=== PATIENT | female | born 1970 | race Caucasian/White ===

== ENCOUNTER 2018-07-15 17:10 | Emergency (ER) | payer OTHER ==
[~2018-07-15] VITALS: Ht 167.6 cm; Wt 82.0 kg
[~2018-07-15 17:10] MED LIST: ALPR-624 PO; ASPI-1265 PO; ATOR20TA PO; BUPR-94 PO; CHOL200074 PO; DICY10CA59 PO; DULO60CA45 PO; ESTR1PAT TD; EXEN2VIA SUBCUT; HYDR-4353 PO; INSU100V12 SQ; INSU100V13 SQ; METF1000 PO; PANT-47 PO; PROG100C16 PO; ZOLP5TAB8 PO
[2018-07-15 18:05] LABS: CLARITY,URINE CLOUDY (Clear); COLOR,URINE YELLOW (Yellow); GLUCOSE, URINE NEGATIVE (Neg); KETONES,URINE NEGATIVE (Neg); LEUKOCYTE ESTERASE ,URINE NEGATIVE (Neg); NITRITES, URINE NEGATIVE (Neg); OCCULT BLOOD,URINE NEGATIVE (Neg); PROTEIN,URINE NEGATIVE (Neg); UROBILINOGEN,URINE 0.2 E.U/dL (0.2-1.0)
[2018-07-15 18:07] LABS: UA COLLECTION TYPE CLN CATCH MIDSTREAM
[2018-07-15 18:11] LABS: URINE HCG NEGATIVE (NEG)
[2018-07-15 18:18] LABS: ALANINE AMINOTRANSFERASE 19 U/L (12-78); ALBUMIN/GLOBULIN RATIO 1.3 (1.1-1.5); ALKALINE PHOSPHATASE 88 IU/L (46-116); ANION GAP 14 (8-16); ASPARTATE AMINO TRANSFERASE 11 U/L (10-37); BILIRUBIN,TOTAL 0.3 MG/DL (0.1-1.0); BLOOD UREA NITROGEN 18 MG/DL (7-18); BUN/CREATININE RATIO 17.6 (6.6-38.0); CHLORIDE 103 MMOL/L (99-107); CREATININE 1.02 MG/DL (0.40-0.90); GLUCOSE 121 MG/DL (70-104); POTASSIUM 3.2 MMOL/L (3.5-5.1); SODIUM 138 MMOL/L (135-145); TOTAL CARBON DIOXIDE 21.5 MMOL/L (24-32); TOTAL PROTEIN 7.1 G/DL (6.4-8.2); eGFR 57 ML/MIN
[2018-07-15 18:18] LABS: SQUAMOUS EPITHELIAL CELL,UR MANY /LPF (FEW)
[2018-07-15 18:19] LABS: BACTERIA,URINE 2+ /HPF (Neg); RBC,URINE 0-2 /HPF (0-2); WBC,URINE 0-4 /HPF (0-4)
[2018-07-15] MEDS ORDERED: normal saline 1000ML IV soln IV ONE (18:20)
[2018-07-15 18:21] LABS: WHITE BLOOD COUNT 10.5 X10'3 (4.5-11.0)
[2018-07-15 18:22] LABS: HEMATOCRIT 45.6 % (35.0-45.0); HEMOGLOBIN 15.2 g/dl (12.0-16.0); LYMPHOCYTES % (AUTO) 27.9 % (21-51); MEAN CORPUSCULAR HEMOGLOBIN 27.9 PG (27.0-31.0); MEAN CORPUSCULAR HGB CONC 33.3 % (33.0-36.5); MEAN CORPUSCULAR VOLUME 83.9 FL (78-98); MONOCYTES % (AUTO) 6.4 % (2-12); NEUTROPHILS % (AUTO) 62.8 % (42-75); PLATELET COUNT 376 X10'3 (140-440); RED BLOOD COUNT 5.44 X10'6 (4.20-5.60); RED CELL DISTRIBUTION WIDTH 11.7 % (11.5-14.5)
[2018-07-15 18:23] LABS: BASOPHILS # (AUTO) 0.1 X10'3 (0-0.2); BASOPHILS % (AUTO) 0.5 % (0-1); EOSINOPHILS # (AUTO) 0.3 X10'3 (0-0.9); EOSINOPHILS % (AUTO) 2.4 % (0-6); LYMPHOCYTES # (AUTO) 2.9 X10'3 (1.1-4.8); MONOCYTES # (AUTO) 0.7 X10'3 (0-0.9); NEUTROPHILS # (AUTO) 6.5 X10'3 (1.8-7.7)
[2018-07-15] MEDS ORDERED: famotidine/PF 10 mg/ml inj IV ONE (18:30)
[2018-07-15] MEDS ORDERED: ondansetron/PF 4mg/2ml inj IV ONE (18:30)
[2018-07-15] MEDS ORDERED: ONDA4TAB9 PO (20:13)
[2018-07-15 20:42] VITALS: BP 109/66
== END 2018-07-15 20:44 | disposition home or self-care (01) ==
LOC: ER 17:11
DX: A08.4 Viral intestinal infection, unspecified (principal); E86.0 Dehydration; E11.9 Type 2 diabetes mellitus without complications; F41.9 Anxiety disorder, unspecified; Z88.1 Allergy status to other antibiotic agents; Z91.040 Latex allergy status; Z91.030 Bee allergy status; Z91.041 Radiographic dye allergy status; Z88.8 Allergy status to other drugs, medicaments and biological substances; Z79.82 Long term (current) use of aspirin; Z79.84 Long term (current) use of oral hypoglycemic drugs; Z79.4 Long term (current) use of insulin; Z79.899 Other long term (current) drug therapy
CPT/HCPCS: 36415; 80053; 81001; 81025; 83605; 84145; 85025; 85610; 87040; 96361; 96374; 96375; 99284; J2405; J3490; J7030

== ENCOUNTER 2018-10-13 09:48 | Outpatient (CLI) | payer OTHER | END 2018-10-13 23:59 | disposition home or self-care (01) | LOC: RAD 09:48 | PROVIDERS: ATTEND Family Medicine | DX: G25.2 Other specified forms of tremor (principal); I10 Essential (primary) hypertension; E11.9 Type 2 diabetes mellitus without complications; Z90.710 Acquired absence of both cervix and uterus | CPT/HCPCS: 95816 ==

== ENCOUNTER 2019-04-14 15:57 | Emergency (ER) | payer OTHER ==
[~2019-04-14] VITALS: Ht 167.6 cm; Wt 84.1 kg
[2019-04-14 16:40] LABS: BASOPHILS # (AUTO) 0.1 X10'3 (0-0.2); BASOPHILS % (AUTO) 0.7 % (0-1); EOSINOPHILS # (AUTO) 0.4 X10'3 (0-0.9); EOSINOPHILS % (AUTO) 3.9 % (0-6); HEMATOCRIT 40.1 % (35.0-45.0); HEMOGLOBIN 13.2 g/dl (12.0-16.0); LYMPHOCYTES # (AUTO) 2.6 X10'3 (1.1-4.8); LYMPHOCYTES % (AUTO) 25.7 % (21-51); MEAN CORPUSCULAR HEMOGLOBIN 28.1 PG (27.0-31.0); MEAN CORPUSCULAR HGB CONC 32.8 g/dL (33.0-36.5); MEAN CORPUSCULAR VOLUME 85.7 FL (78-98); MEAN PLATELET VOLUME 7.6 FL (7.4-10.4); MONOCYTES # (AUTO) 0.6 X10'3 (0-0.9); MONOCYTES % (AUTO) 5.7 % (2-12); NEUTROPHILS # (AUTO) 6.5 X10'3 (1.8-7.7); PLATELET COUNT 330 X10'3 (140-440); RED BLOOD COUNT 4.68 X10'6 (4.20-5.60); WHITE BLOOD COUNT 10.1 X10'3 (4.5-11.0)
[2019-04-14] MEDS ORDERED: normal saline 1000ML IV soln IVB ONE (16:45)
[2019-04-14] MEDS ORDERED: morphine 2 MG/ML inj. syringe IV PRN (16:45)
[2019-04-14] MEDS ORDERED: morphine 4 MG/ML inj SYRINge IV ONE (16:45)
[2019-04-14 16:59] LABS: ALANINE AMINOTRANSFERASE 19 U/L (12-78); ALBUMIN 3.6 G/DL (3.4-5.0); ALBUMIN/GLOBULIN RATIO 1.2 (1.1-1.5); ALKALINE PHOSPHATASE 67 IU/L (46-116); ANION GAP 13 (8-16); ASPARTATE AMINO TRANSFERASE 10 U/L (10-37); BILIRUBIN,TOTAL 0.1 MG/DL (0.1-1.0); BLOOD UREA NITROGEN 21 MG/DL (7-18); BUN/CREATININE RATIO 17.4 (6.6-38.0); CHLORIDE 110 MMOL/L (99-107); CREATININE 1.21 MG/DL (0.40-0.90); GLUCOSE 147 MG/DL (70-104); LIPASE 344 U/L (73-393); POTASSIUM 3.7 MMOL/L (3.5-5.1); SODIUM 146 MMOL/L (135-145); TOTAL CARBON DIOXIDE 22.6 MMOL/L (24-32); TOTAL PROTEIN 6.5 G/DL (6.4-8.2); eGFR 47 ML/MIN
[2019-04-14 17:11] LABS: CALCIUM 9.1 MG/DL (8.5-10.1)
[2019-04-14 17:19] LABS: URINE HCG NEGATIVE (NEG)
[2019-04-14 17:20] LABS: CLARITY,URINE SLIGHTLY CLOUDY (Clear); COLOR,URINE YELLOW (Yellow); GLUCOSE, URINE NEGATIVE (Neg); KETONES,URINE TRACE mg/dl (Neg); LEUKOCYTE ESTERASE ,URINE NEGATIVE (Neg); NITRITES, URINE NEGATIVE (Neg); OCCULT BLOOD,URINE MODERATE (Neg); PROTEIN,URINE NEGATIVE (Neg); UROBILINOGEN,URINE 0.2 E.U/dL (0.2-1.0)
[2019-04-14 17:32] LABS: UA COLLECTION TYPE CLN CATCH MIDSTREAM
[2019-04-14 17:35] LABS: SQUAMOUS EPITHELIAL CELL,UR MANY /LPF (FEW)
[2019-04-14 17:36] LABS: HYALINE CASTS 0-3 /LPF (NEGATIVE); MUCUS STRANDS MANY /LPF (Neg); TRANSITIONAL EPI CELLS,URINE FEW /HPF
[2019-04-14 17:38] LABS: BACTERIA,URINE FEW /HPF (Neg); RBC,URINE 20-50 /HPF (0-2); WBC,URINE 0-4 /HPF (0-4)
[2019-04-14 18:00] VITALS: BP 123/79
[2019-04-14] MEDS ORDERED: ondansetron/PF 4mg/2ml inj IV ONE (18:30)
[2019-04-14] MEDS ORDERED: ONDA8TAB13 PO (19:04)
[2019-04-14] MEDS ORDERED: FLO0.4C PO (19:04)
[2019-04-14] MEDS ORDERED: HYDR-3965 PO (19:04)
[2019-04-14] MEDS ORDERED: tamsulosin 0.4mg capsule PO ONE (19:05)
== END 2019-04-14 19:24 | disposition home or self-care (01) ==
LOC: ER 15:57
DX: N13.2 Hydronephrosis with renal and ureteral calculous obstruction (principal); E11.9 Type 2 diabetes mellitus without complications; F41.9 Anxiety disorder, unspecified; Z90.49 Acquired absence of other specified parts of digestive tract; Z88.1 Allergy status to other antibiotic agents; Z91.040 Latex allergy status; Z88.8 Allergy status to other drugs, medicaments and biological substances; Z79.82 Long term (current) use of aspirin; Z79.4 Long term (current) use of insulin; Z79.84 Long term (current) use of oral hypoglycemic drugs; Z79.899 Other long term (current) drug therapy
CPT/HCPCS: 36415; 74176; 80053; 81001; 81025; 83690; 85025; 96374; 96375; 96376; 99284; J2270; J2405; J7030

== ENCOUNTER 2021-11-23 11:31 | Emergency (ER) | payer OTHER ==
[~2021-11-23] VITALS: Ht 167.6 cm; Wt 109.1 kg
[~2021-11-23 11:31] MED LIST changes: -DULO60CA45 PO; +DULO60CA60 PO; +ONDA8TAB13 PO
[2021-11-23 12:21] VITALS: BP 130/81
== END 2021-11-23 12:34 | disposition home or self-care (01) ==
LOC: ER 11:32
DX: T82.838A Hemorrhage due to vascular prosthetic devices, implants and grafts, initial encounter (principal); E11.9 Type 2 diabetes mellitus without complications; Z87.442 Personal history of urinary calculi; Z90.49 Acquired absence of other specified parts of digestive tract; Z88.1 Allergy status to other antibiotic agents; Z91.013 Allergy to seafood; Z91.030 Bee allergy status; Z91.048 Other nonmedicinal substance allergy status; Z91.040 Latex allergy status; Z79.82 Long term (current) use of aspirin; Z79.4 Long term (current) use of insulin; Z79.899 Other long term (current) drug therapy; Y92.89 Other specified places as the place of occurrence of the external cause
CPT/HCPCS: 99281

== ENCOUNTER 2022-06-06 06:08 | Inpatient (IN) | payer OTHER ==
[~2022-06-06] VITALS: Ht 167.6 cm; Wt 107.7 kg
[~2022-06-06 06:08] MED LIST changes: -PROG100C16 PO; +PROG100C28 PO
[2022-06-06 08:21] LABS: BASOPHILS # (AUTO) 0.1 X10'3 (0-0.2); BASOPHILS % (AUTO) 0.7 % (0-1); EOSINOPHILS # (AUTO) 0.4 X10'3 (0-0.9); HEMATOCRIT 40.9 % (35.0-45.0); HEMOGLOBIN 13.1 g/dl (12.0-16.0); LYMPHOCYTES # (AUTO) 2.5 X10'3 (1.1-4.8); LYMPHOCYTES % (AUTO) 21.3 % (21-51); MEAN CORPUSCULAR HEMOGLOBIN 25.3 PG (27.0-31.0); MEAN CORPUSCULAR HGB CONC 32.1 g/dL (33.0-36.5); MEAN CORPUSCULAR VOLUME 78.9 FL (78-98); MEAN PLATELET VOLUME 8.1 FL (7.4-10.4); MONOCYTES # (AUTO) 0.7 X10'3 (0-0.9); MONOCYTES % (AUTO) 6.1 % (2-12); NEUTROPHILS % (AUTO) 68.9 % (42-75); PLATELET COUNT 420 X10'3 (140-440); RED BLOOD COUNT 5.18 X10'6 (4.20-5.60); RED CELL DISTRIBUTION WIDTH 14.4 % (11.5-14.5); WHITE BLOOD COUNT 11.6 X10'3 (4.5-11.0)
[2022-06-06 08:23] LABS: ALANINE AMINOTRANSFERASE 32 U/L (12-78); ALBUMIN 3.5 G/DL (3.4-5.0); ALKALINE PHOSPHATASE 126 IU/L (46-116); ANION GAP 13 (8-16); ASPARTATE AMINO TRANSFERASE 17 U/L (10-37); BILIRUBIN,TOTAL 0.3 MG/DL (0.1-1.0); BLOOD UREA NITROGEN 33 MG/DL (7-18); BUN/CREATININE RATIO 20.5 (6.6-38.0); CALCIUM 9.8 MG/DL (8.5-10.1); CHLORIDE 105 MMOL/L (99-107); CREATININE 1.61 MG/DL (0.40-0.90); GLUCOSE 204 MG/DL (70-104); LIPASE 80 U/L (73-393); POTASSIUM 4.8 MMOL/L (3.5-5.1); SODIUM 138 MMOL/L (135-145); eGFR 33 ML/MIN
[2022-06-06 10:55] LABS: CLARITY,URINE CLEAR (Clear); COLOR,URINE YELLOW (Yellow); GLUCOSE, URINE NEGATIVE (Neg); KETONES,URINE NEGATIVE (Neg); LEUKOCYTE ESTERASE ,URINE NEGATIVE (Neg); NITRITES, URINE NEGATIVE (Neg); OCCULT BLOOD,URINE NEGATIVE (Neg); PROTEIN,URINE NEGATIVE (Neg); UROBILINOGEN,URINE 0.2 E.U/dL (0.2-1.0)
[2022-06-06 10:57] LABS: UA COLLECTION TYPE VOIDED
[2022-06-06 10:58] LABS: URINE HCG NEGATIVE (NEG)
[2022-06-06] MEDS ORDERED: normal saline 1000ML IV soln IVB ONE ×2 (12:15→15:40)
[2022-06-06] MEDS ORDERED: ondansetron/PF 4mg/2ml inj IV ONE ×2 (12:15→15:40)
[2022-06-06] MEDS: morphine 4 MG/ML inj SYRINge IV PRN ×2 (12:32→15:55)
[2022-06-06] MEDS ORDERED: morphine 4 MG/ML inj SYRINge IV PRN (15:40)
[2022-06-06] MEDS ORDERED: HYDROmorphone inj. 0.5 MG/0.5 ML DISP.SYRIN IV PRN (16:00)
[2022-06-06] MEDS ORDERED: acetaminophen 325mg tablet PO PRN ×2 (16:00)
[2022-06-06] MEDS ORDERED: magnesium Cl slow-release 64mg tablet PO PRN (16:00)
[2022-06-06] MEDS ORDERED: potassium Cl 20 mEq SR tablet PO PRN ×2 (16:00)
[2022-06-06] MEDS ORDERED: potassium Cl 40MEQ/1/2NS 520ml 520 ML IV PRN (16:00)
[2022-06-06] MEDS ORDERED: mag hydrox/Alum hydrox/simeth 30ml oral suspension PO PRN (16:00)
[2022-06-06] MEDS ORDERED: HYDROcodone/acetaminophen 5mg/325mg tablet PO PRN (16:00)
[2022-06-06] MEDS ORDERED: bisacodyl 10mg suppository rectal RC PRN (16:00)
[2022-06-06] MEDS ORDERED: magnesium hydroxide 30ml (MOM) UD suspension PO PRN (16:00)
[2022-06-06] MEDS ORDERED: magnesium 4gm in 100ml NS 100 ML IV PRN (16:00)
[2022-06-06] MEDS ORDERED: acetaminophen 650mg rectal suppository RC PRN (16:00)
[2022-06-06] MEDS: normal saline 1000ml 1,000 ML IV SCH ×2 (16:31→22:04)
[2022-06-06] MEDS: pantoprazole 40MG/NS 100ML BAG 100 ML IV SCH (16:31)
[2022-06-06] MEDS ORDERED: diphenhydrAMINE 50 mg/ml inj IV PRN (16:50)
[2022-06-06] MEDS ORDERED: MESSAGE TO PHARMACY PO ONE ×2 (16:50→18:25)
[2022-06-06] MEDS ORDERED: dextrose 50%-water 50ml dispensing syringe IV PRN ×4 (16:50→18:25)
[2022-06-06] MEDS ORDERED: DEXTROSE 15 GM of carb/4 tabs (each vial/BOTTLE has 4 tablets) PO PRN ×4 (16:50→18:25)
[2022-06-06] MEDS ORDERED: insulin Lispro (HumaLOG) vial - multi-dose SQ SCH ×2 (16:50→18:25)
[2022-06-06] MEDS ORDERED: glucagon, human recombinant 1mg kit SUBCUT PRN ×2 (16:50→18:25)
[2022-06-06 17:51] LABS: HEMOGLOBIN A1C 8.1 % (4.5-6.2)
[2022-06-06] MEDS ORDERED: CLON-369 PO (17:52)
[2022-06-06] MEDS ORDERED: INSU100C4 SQ (17:52)
[2022-06-06] MEDS ORDERED: ZOLP5TAB8 PO (17:52)
[2022-06-06] MEDS ORDERED: LAMO25TA5 PO (17:52)
[2022-06-06] MEDS ORDERED: LISI10TA27 PO (17:52)
[2022-06-06] MEDS ORDERED: METF-1203 PO (17:52)
[2022-06-06] MEDS ORDERED: LEVO80CA PO (17:52)
[2022-06-06] MEDS ORDERED: LIOT25TA12 PO (17:52)
[2022-06-06] MEDS ORDERED: ATOR20TA66 (17:52)
[2022-06-06] MEDS ORDERED: HYDR12.55 PO (17:52)
[2022-06-06] MEDS ORDERED: CHOL10008 PO (17:54)
[2022-06-06] MEDS ORDERED: clonazePAM 0.5mg tablet PO PRN (18:25)
[2022-06-06] MEDS ORDERED: zolpidem 5mg tablet PO PRN (18:25)
[2022-06-06] MEDS: K and/or MAG REPLACEMENT MC SCH (18:53)
[2022-06-06 19:02] LABS: H PYLORI ANTIBODY NEGATIVE (Neg)
[2022-06-06] MEDS: ondansetron 4mg rapidly disintigrating tab PO PRN (19:30)
[2022-06-06] MEDS: HYDROcodone/acetaminophen 10/325mg tab PO PRN (19:30)
[2022-06-06] MEDS: docusate sod 100mg capsule PO SCH (20:00)
[2022-06-06] MEDS ORDERED: temazepam 15mg capsule PO PRN (21:00)
[2022-06-06] MEDS: insulin glargine (Lantus) pen - multi-dose SQ SCH (21:00)
[2022-06-06] MEDS: lamoTRIgine 25mg tablet PO SCH (21:58)
--- NOTE | 2022-06-06 22:05 | NUR ---
Pt using her own insulin pump to manage blood sugars. Refusing our insulin protocal.
[2022-06-07 03:13] LABS: BASOPHILS # (AUTO) 0.1 X10'3 (0-0.2); EOSINOPHILS # (AUTO) 0.5 X10'3 (0-0.9); EOSINOPHILS % (AUTO) 6.4 % (0-6); HEMATOCRIT 35.8 % (35.0-45.0); HEMOGLOBIN 11.6 g/dl (12.0-16.0); LYMPHOCYTES # (AUTO) 2.7 X10'3 (1.1-4.8); LYMPHOCYTES % (AUTO) 33.2 % (21-51); MEAN CORPUSCULAR HEMOGLOBIN 25.6 PG (27.0-31.0); MEAN CORPUSCULAR HGB CONC 32.4 g/dL (33.0-36.5); MEAN CORPUSCULAR VOLUME 78.9 FL (78-98); MEAN PLATELET VOLUME 7.5 FL (7.4-10.4); MONOCYTES # (AUTO) 0.6 X10'3 (0-0.9); MONOCYTES % (AUTO) 7.3 % (2-12); NEUTROPHILS # (AUTO) 4.2 X10'3 (1.8-7.7); NEUTROPHILS % (AUTO) 52.1 % (42-75); PLATELET COUNT 344 X10'3 (140-440); RED BLOOD COUNT 4.53 X10'6 (4.20-5.60); RED CELL DISTRIBUTION WIDTH 14.4 % (11.5-14.5)
[2022-06-07 03:25] LABS: ALANINE AMINOTRANSFERASE 30 U/L (12-78); ALKALINE PHOSPHATASE 106 IU/L (46-116); ANION GAP 6 (8-16); ASPARTATE AMINO TRANSFERASE 17 U/L (10-37); BILIRUBIN,TOTAL 0.2 MG/DL (0.1-1.0); BLOOD UREA NITROGEN 23 MG/DL (7-18); BUN/CREATININE RATIO 17.7 (6.6-38.0); CALCIUM 8.3 MG/DL (8.5-10.1); CHLORIDE 111 MMOL/L (99-107); GLUCOSE 97 MG/DL (70-104); MAGNESIUM 1.6 MG/DL (1.5-2.4); POTASSIUM 4.3 MMOL/L (3.5-5.1); SODIUM 143 MMOL/L (135-145); TOTAL CARBON DIOXIDE 26.4 MMOL/L (24-32); eGFR 43 ML/MIN
[2022-06-07] MEDS: ondansetron/PF 4mg/2ml inj IV PRN ×2 (07:55→15:23)
[2022-06-07] MEDS: pantoprazole 40MG/NS 100ML BAG 100 ML IV SCH ×3 (07:55→21:37)
[2022-06-07] MEDS: K and/or MAG REPLACEMENT MC SCH ×2 (08:00→20:00)
[2022-06-07] MEDS ORDERED: liothyronine sod 5mcg tablet PO SCH (08:00)
[2022-06-07] MEDS: docusate sod 100mg capsule PO SCH ×2 (08:00→20:38)
[2022-06-07] MEDS: lamoTRIgine 25mg tablet PO SCH ×2 (08:00→20:38)
[2022-06-07] MEDS: LEVOMILNACIPRAN HYDROCHLORIDE 80 MG PO SCH (08:00)
[2022-06-07] MEDS ORDERED: non-formulary drug (Insulin Aspart (Novolog) 100 UNIT) SQ SCH (08:00)
--- NOTE | 2022-06-07 08:40 | NUR ---
Patient in room ED 9. I have received report from Maureen SANTA Traveler and had the opportunity to ask questions and assume patient care.
--- NOTE | 2022-06-07 09:45 | NUR ---
Pt was brought to the floor by [employer]. Primary nurse Belkys Patrick was on break when pt was dropped off. Pt dropped off in a dirty room, room was requested to be stat cleaned. ED states they did not know it was dirty.
[2022-06-07 10:00] VITALS: BP 145/76
[2022-06-07] MEDS: HYDROmorphone/PF 0.2 MG/ML SYRINGE IV PRN ×2 (13:22→17:56)
[2022-06-07] MEDS: normal saline 1000ml 1,000 ML IV SCH ×2 (13:34→21:51)
--- NOTE | 2022-06-07 17:50 | NUR ---
Pt was accu checked 113 reading did not record.
[2022-06-07 18:00] VITALS: BP 138/72
--- NOTE | 2022-06-07 18:28 | NUR ---
Problems reprioritized. Patient report given, questions answered & plan of care reviewed with Prudence RN.
--- NOTE | 2022-06-07 19:32 | NUR ---
Patient in room [facility]. I have received report from RIGO SANTA and had the opportunity to ask questions and assume patient care.
[2022-06-07] MEDS: HYDROcodone/acetaminophen 10/325mg tab PO PRN (20:39)
[2022-06-07] MEDS: insulin glargine (Lantus) pen - multi-dose SQ SCH (21:00)
[2022-06-07 22:00] VITALS: BP 154/74
--- NOTE | 2022-06-07 22:46 | NUR ---
PATIENT SELF-ADMINISTERS INSULIN FROM THE INSULIN PUMP PER MD ORDER.
[2022-06-08] MEDS: normal saline 1000ml 1,000 ML IV SCH ×3 (01:40→15:39)
[2022-06-08] MEDS: HYDROcodone/acetaminophen 10/325mg tab PO PRN ×3 (01:51→16:57)
[2022-06-08] MEDS: pantoprazole 40MG/NS 100ML BAG 100 ML IV SCH ×2 (01:52→06:35)
--- NOTE | 2022-06-08 05:10 | NUR ---
Student documentation: I have reviewed and agree with all interventions, assessments performed and documented by SHARRI AGOSTO.
--- NOTE | 2022-06-08 05:11 | NUR ---
Student Medication Administration: For this medication-pass time frame, all medication were reviewed, dispensed, administered and documented per hospital policy by SHARRI AGOSTO.
[2022-06-08 06:00] VITALS: BP 161/89
--- NOTE | 2022-06-08 06:29 | NUR ---
Problems reprioritized. Patient report given, questions answered & plan of care reviewed with Jana SANTA.
[2022-06-08 06:37] LABS: BASOPHILS # (AUTO) 0.1 X10'3 (0-0.2); BASOPHILS % (AUTO) 0.9 % (0-1); EOSINOPHILS # (AUTO) 0.4 X10'3 (0-0.9); EOSINOPHILS % (AUTO) 6.5 % (0-6); HEMATOCRIT 36.3 % (35.0-45.0); HEMOGLOBIN 11.9 g/dl (12.0-16.0); LYMPHOCYTES # (AUTO) 2.2 X10'3 (1.1-4.8); MEAN CORPUSCULAR HEMOGLOBIN 26.1 PG (27.0-31.0); MEAN CORPUSCULAR HGB CONC 32.8 g/dL (33.0-36.5); MEAN CORPUSCULAR VOLUME 79.7 FL (78-98); MONOCYTES # (AUTO) 0.5 X10'3 (0-0.9); MONOCYTES % (AUTO) 7.4 % (2-12); NEUTROPHILS # (AUTO) 3.1 X10'3 (1.8-7.7); NEUTROPHILS % (AUTO) 50.2 % (42-75); PLATELET COUNT 316 X10'3 (140-440); RED BLOOD COUNT 4.56 X10'6 (4.20-5.60); RED CELL DISTRIBUTION WIDTH 14.3 % (11.5-14.5); WHITE BLOOD COUNT 6.2 X10'3 (4.5-11.0)
[2022-06-08 06:48] LABS: ALANINE AMINOTRANSFERASE 25 U/L (12-78); ALBUMIN 2.9 G/DL (3.4-5.0); ALKALINE PHOSPHATASE 100 IU/L (46-116); ANION GAP 7 (8-16); ASPARTATE AMINO TRANSFERASE 17 U/L (10-37); BILIRUBIN,TOTAL 0.2 MG/DL (0.1-1.0); BLOOD UREA NITROGEN 12 MG/DL (7-18); BUN/CREATININE RATIO 9.8 (6.6-38.0); CALCIUM 8.6 MG/DL (8.5-10.1); CHLORIDE 110 MMOL/L (99-107); CREATININE 1.23 MG/DL (0.40-0.90); GLUCOSE 160 MG/DL (70-104); MAGNESIUM 1.7 MG/DL (1.5-2.4); POTASSIUM 4.5 MMOL/L (3.5-5.1); SODIUM 143 MMOL/L (135-145); TOTAL CARBON DIOXIDE 25.8 MMOL/L (24-32); TOTAL PROTEIN 5.9 G/DL (6.4-8.2); eGFR 46 ML/MIN
--- NOTE | 2022-06-08 07:01 | NUR ---
Patient in room [facility] 347. I have received report from Sharda SANTA and had the opportunity to ask questions and assume patient care.
--- NOTE | 2022-06-08 07:37 | NUR ---
Patients morning blood glucose 159, Patient plugged in her blood glucose to insulin pump and it automatically gives her a bolus per calculations Her current basal rate is 1.6 units/ hr, Bolus of 1.2 units. Carb Factor 3.8. Patient verbalized that she will advise of any changes to her insulin pump and is aware the next scheduled accucheck is at 1200 if she feels low I can check her at any time.
[2022-06-08] MEDS: K and/or MAG REPLACEMENT MC SCH ×2 (08:00→20:46)
[2022-06-08] MEDS: LEVOMILNACIPRAN HYDROCHLORIDE 80 MG PO SCH (08:00)
[2022-06-08] MEDS: docusate sod 100mg capsule PO SCH ×2 (09:14→19:49)
[2022-06-08] MEDS: lamoTRIgine 25mg tablet PO SCH ×2 (09:14→19:49)
[2022-06-08] MEDS ORDERED: LIOthyronine 25mcg tablet PO SCH (09:33)
[2022-06-08] MEDS ORDERED: liothyronine sod 5mcg tablet PO SCH ×2 (09:40→10:30)
[2022-06-08 10:00] VITALS: BP 134/77
--- NOTE | 2022-06-08 10:57 | NUR ---
DM Consult: Pt hx insulin-dependent DM A1C 8.1% admit DX acute duodenitis, AILYN on CKD, HTN, and per EMR. Pt seen by RD for written/verbal DM diet ed w/ RD contact information provided. Pt reports has insulin pump and is followed by [facility] check ups every few weeks to ensure pump calibrations and insulin dosages are accurate. Per pt, typically follows 50g CHO at main meals and eats balanced meals occasionally indulging in food cravings. RD encouraged pt to contact dietitian's office if further questions/concerns. Addendum: 06/08/22 at [address] Amended: Links added.
--- NOTE | 2022-06-08 12:02 | NUR ---
Patient accu check was 91. Patient did not do a bolus on her insulin pump and her Basal rate is staying the same at 1.6 units/hr. carb factor 3.8
--- NOTE | 2022-06-08 16:15 | NUR ---
Patient called me into her room stating that her insulin pump was alarming that her blood sugar was 73 and was going down fast. gave patient a juice and checked her blood glucose with our machine and it showed blood glucose of 93, patients machine is now stating 58 patient stated that her insulin pump battery was running very low. Replaced patients battery and now pump is working accurately.
[2022-06-08] MEDS ORDERED: LEVOMILNACIPRAN HYDROCHLORIDE 80 MG PO ONE (16:40)
[2022-06-08 18:00] VITALS: BP 128/76
--- NOTE | 2022-06-08 18:43 | NUR ---
Problems reprioritized. Patient report given, questions answered & plan of care reviewed with Prudence RN.
--- NOTE | 2022-06-08 19:06 | NUR ---
Patient in room [facility] 347. I have received report from MICHAEL SANTA and had the opportunity to ask questions and assume patient care.
[2022-06-08] MEDS: pantoprazole 40mg Tablet.DR PO SCH (19:49)
[2022-06-08] MEDS: insulin glargine (Lantus) pen - multi-dose SQ SCH (21:00)
[2022-06-08 22:00] VITALS: BP 128/70
--- NOTE | 2022-06-08 22:04 | NUR ---
PATIENT DID NOT BOLUS INSULIN VIA INSULIN PUMP. BLOOD GLUCOSE AT 80. Addendum: 06/08/22 at 2207 by Sharda Grady RN HS BLOOD GLUCOSE AT 80 AND ENCOURAGE PATIENT TO DRINK SUGARY DRINKS TO HELP INCREASE HER BLOOD SUGAR LEVELS.
[2022-06-09] MEDS: normal saline 1000ml 1,000 ML IV SCH (02:00)
--- NOTE | 2022-06-09 03:10 | NUR ---
Student documentation: I have reviewed and agree with all interventions, assessments performed and documented by SHARRI AGOSTO.
--- NOTE | 2022-06-09 03:11 | NUR ---
Student Medication Administration: For this medication-pass time frame, all medication were reviewed, dispensed, administered and documented per hospital policy by SHARRI AGOSTO.
--- NOTE | 2022-06-09 04:46 | NUR ---
Blood Glucose check at 0445, Accucheck read 173. Patient bolus with insulin pump with 2.1 units of insulin.
[2022-06-09] MEDS: HYDROcodone/acetaminophen 10/325mg tab PO PRN ×2 (05:09→08:48)
[2022-06-09] MEDS: ondansetron 4mg rapidly disintigrating tab PO PRN (05:09)
[2022-06-09 06:00] VITALS: BP 141/78
[2022-06-09 06:36] LABS: BASOPHILS % (AUTO) 0.6 % (0-1); EOSINOPHILS # (AUTO) 0.3 X10'3 (0-0.9); EOSINOPHILS % (AUTO) 4.8 % (0-6); HEMATOCRIT 33.8 % (35.0-45.0); HEMOGLOBIN 11.4 g/dl (12.0-16.0); LYMPHOCYTES # (AUTO) 1.4 X10'3 (1.1-4.8); LYMPHOCYTES % (AUTO) 21.2 % (21-51); MEAN CORPUSCULAR HEMOGLOBIN 26.2 PG (27.0-31.0); MEAN CORPUSCULAR HGB CONC 33.6 g/dL (33.0-36.5); MEAN PLATELET VOLUME 7.7 FL (7.4-10.4); MONOCYTES # (AUTO) 0.4 X10'3 (0-0.9); MONOCYTES % (AUTO) 5.9 % (2-12); NEUTROPHILS # (AUTO) 4.6 X10'3 (1.8-7.7); NEUTROPHILS % (AUTO) 67.5 % (42-75); PLATELET COUNT 319 X10'3 (140-440); RED BLOOD COUNT 4.33 X10'6 (4.20-5.60); RED CELL DISTRIBUTION WIDTH 13.9 % (11.5-14.5); WHITE BLOOD COUNT 6.8 X10'3 (4.5-11.0)
--- NOTE | 2022-06-09 06:44 | NUR ---
Problems reprioritized. Patient report given, questions answered & plan of care reviewed with KIET Rizvi and KIET Robin.
--- NOTE | 2022-06-09 06:44 | NUR ---
Problems reprioritized. Patient report given, questions answered & plan of care reviewed with RIGO SANTA.
--- NOTE | 2022-06-09 06:57 | NUR ---
Patient in room [facility] 347. I have received report from Sharda SANTA and had the opportunity to ask questions and assume patient care.
[2022-06-09 07:04] LABS: ALANINE AMINOTRANSFERASE 22 U/L (12-78); ALBUMIN 2.9 G/DL (3.4-5.0); ALBUMIN/GLOBULIN RATIO 1.1 (1.1-1.5); ALKALINE PHOSPHATASE 103 IU/L (46-116); ANION GAP 5 (8-16); ASPARTATE AMINO TRANSFERASE 19 U/L (10-37); BILIRUBIN,TOTAL 0.2 MG/DL (0.1-1.0); BLOOD UREA NITROGEN 7 MG/DL (7-18); BUN/CREATININE RATIO 5.9 (6.6-38.0); CALCIUM 8.6 MG/DL (8.5-10.1); CHLORIDE 110 MMOL/L (99-107); CREATININE 1.18 MG/DL (0.40-0.90); GLUCOSE 188 MG/DL (70-104); MAGNESIUM 1.7 MG/DL (1.5-2.4); POTASSIUM 4.2 MMOL/L (3.5-5.1); SODIUM 140 MMOL/L (135-145); TOTAL CARBON DIOXIDE 24.7 MMOL/L (24-32); TOTAL PROTEIN 5.6 G/DL (6.4-8.2); eGFR 48 ML/MIN
[2022-06-09] MEDS: LEVOMILNACIPRAN HYDROCHLORIDE 80 MG PO SCH (08:47)
[2022-06-09] MEDS: pantoprazole 40mg Tablet.DR PO SCH (08:48)
[2022-06-09] MEDS: lamoTRIgine 25mg tablet PO SCH (08:48)
[2022-06-09] MEDS: docusate sod 100mg capsule PO SCH (08:48)
[2022-06-09 10:00] VITALS: BP 91/65
[2022-06-09] MEDS ORDERED: PANT40TA54 PO (13:29)
--- NOTE | 2022-06-09 14:46 | NUR ---
pt refused to be pocked. She is going home. waiting for DC orders. Addendum: 06/09/22 at 1446 by Belkys Major RN Amended: Links added.
--- NOTE | 2022-06-09 14:53 | NUR ---
Pt Dc to home with , pt is A & O x4 and in no apparent distress. pt verbalizes understanding of ALL Dc orders. pt is educated on her DM and her pump. Pt did not wanted to be pocked at lunch time thinking she would be DC soon but the DC orders took a bit. pt given Protonix PO for home. called in to [facility] pharmacy in [place]. pt wheeled to the front where her took her home.
== END 2022-06-09 14:45 | disposition home or self-care (01) | DRG 391 ==
LOC: ER 06:09 → ED HOLD 16:02 → SUR 3N 06-07 09:17
PROVIDERS: ADMIT Family Medicine; ATTEND Family Medicine
DX: K29.80 Duodenitis without bleeding (principal); N17.0 Acute kidney failure with tubular necrosis; E04.2 Nontoxic multinodular goiter; E11.22 Type 2 diabetes mellitus with diabetic chronic kidney disease; E78.5 Hyperlipidemia, unspecified; F32.A Depression, unspecified; Z96.41 Presence of insulin pump (external) (internal); F41.9 Anxiety disorder, unspecified; R25.1 Tremor, unspecified; G40.909 Epilepsy, unspecified, not intractable, without status epilepticus; I12.9 Hypertensive chronic kidney disease with stage 1 through stage 4 chronic kidney disease, or unspecified chronic kidney disease; K76.0 Fatty (change of) liver, not elsewhere classified; N18.30 Chronic kidney disease, stage 3 unspecified; Z79.4 Long term (current) use of insulin; Z87.442 Personal history of urinary calculi; Z90.49 Acquired absence of other specified parts of digestive tract; Z90.710 Acquired absence of both cervix and uterus; Z88.1 Allergy status to other antibiotic agents; Z91.030 Bee allergy status; Z91.041 Radiographic dye allergy status; Z91.040 Latex allergy status; Z91.013 Allergy to seafood; Z91.048 Other nonmedicinal substance allergy status
CPT/HCPCS: 36415; 74176; 80053; 81003; 81025; 82941; 82948; 83036; 83605; 83690; 83735; 84145; 84443; 85025; 86677; 87040; 96361; 96374; 96375; 96376; 97161; 97530; 99285; C9113; G0378; J1170; J1200; J1815; J2270; J2405; J7030